=== PATIENT | male | born 1990 | race Caucasian/White ===

== ENCOUNTER → 2016-09-24 | Outpatient (CLI) | payer OTHER ==
--- NOTE | 2016-09-24 10:36 | DI ---
Indication: [email or web address]: DIAGNOSTIC TESTING PROCEDURE: KNEE LEFT 2 VIEW: Encounter: Initial Comparison: None Findings: There is no acute fracture, dislocation or malalignment identified. Joint spaces are normal. Impression: No acute osseous abnormality. .
--- NOTE | 2016-09-24 10:36 | DI ---
Indication: [email or web address].[email or web address]: DIAGNOSTIC TESTING PROCEDURE: KNEE RIGHT 2 VIEW: Encounter: Initial Comparison: None Findings: There is no acute fracture, dislocation or malalignment identified. Joint spaces are normal. Impression: No acute osseous abnormality. .
--- NOTE | 2016-09-24 10:37 | DI ---
Indication: [email or web address].[email or web address]: DIAGNOSTIC TESTING PROCEDURE: TIB-FIB RIGHT 2 VIEW: Encounter: Initial Comparison: None Findings: There is no acute fracture, dislocation or malalignment identified. Tiny well-corticated ossicle adjacent to the tip of the distal fibula consistent with an old avulsion fracture. Impression: No acute osseous abnormality. .
--- NOTE | 2016-09-24 10:38 | DI ---
Indication: [email or web address]: DIAGNOSTIC TESTING PROCEDURE: TIB-FIB LEFT 2 VIEW: Encounter: Initial Comparison: None Findings: There is no acute fracture, dislocation or malalignment identified. Impression: No acute osseous abnormality. .
--- NOTE | 2016-09-24 14:26 | DI ---
Indication: ITS.REASON: DX TESTING PROCEDURE: FOOT RIGHT 3 VIEWS: Encounter: Initial Comparison: None Findings: There is no acute fracture, dislocation or malalignment identified. No significant degenerative changes. Impression: No acute osseous abnormality. .
--- NOTE | 2016-09-24 14:26 | DI ---
Indication: ITS.REASON: DX TESTING PROCEDURE: ANKLE LEFT 2 VIEW: Encounter: Initial Comparison: None Findings: There is no acute fracture, dislocation or malalignment identified. Impression: No acute osseous abnormality. .
== END ==
LOC: IMA 09:51
DX: Z02.89 Encounter for other administrative examinations (principal)